=== PATIENT | male | born 1985 | race Caucasian/White ===

== ENCOUNTER 2024-04-05 02:16 | Emergency (ER) | payer OTHER ==
[~2024-04-05] VITALS: Ht 177.8 cm; Wt 72.6 kg
== END 2024-04-05 06:07 | disposition left against medical advice (07) ==
LOC: ER 02:16
DX: Z53.29 Procedure and treatment not carried out because of patient's decision for other reasons (principal)
CPT/HCPCS: 73590

== ENCOUNTER 2024-04-07 22:33 | Emergency (ER) | payer MEDICAID ==
[~2024-04-07] VITALS: Ht 177.8 cm; Wt 77.1 kg
== END 2024-04-08 | disposition home or self-care (01) ==
LOC: ER 22:33
DX: M25.551 Pain in right hip (principal); M79.661 Pain in right lower leg; G89.29 Other chronic pain
CPT/HCPCS: 73502; 99283-25

== ENCOUNTER 2024-04-10 02:29 | Emergency (ER) | payer MEDICAID ==
[~2024-04-10] VITALS: Ht 177.8 cm; Wt 81.7 kg
[2024-04-10] MEDS ORDERED: Ketorolac Tromethamine 30mg Vial IM ONE (06:25)
== END 2024-04-10 06:49 | disposition home or self-care (01) ==
LOC: ER 02:29
DX: M79.604 Pain in right leg (principal); G89.29 Other chronic pain; Z59.00 Homelessness unspecified
CPT/HCPCS: 96372; 99283-25; J1885